=== PATIENT | female | born 1985 ===

== ENCOUNTER 2017-05-23 01:50 | Inpatient (IN) | payer MEDICARE, MEDICAID ==
[2017-05-23 01:50] VITALS: BMI 31.9
--- NOTE | 2017-05-23 02:25 | C.PDOC ---
History Of Present Illness 31 year old female presents to the ED complaining of feeling depressed. States she is sad because her sister and wants to talk to someone. Denies any suicidal or homicidal ideation. Time Seen by Provider: 05/23/17 02:24 Chief Complaint (Nursing): Psychiatric Evaluation History Per: Patient History/Exam Limitations: no limitations Onset/Duration Of Symptoms: Days Current Symptoms Are (Timing): Still Present Suicide/Self Injury Attempted (Context): None Modifying Factor(s): None Severity: Moderate Associated Symptoms: Depression. denies: Suicidal Thoughts Involuntary Hold By: None Recent travel outside of the [place]: No Past Medical History Reviewed: Historical Data, Nursing Documentation, Vital Signs Vital Signs: Last Vital Signs Temp 98.3 F 05/23/17 02:23 Pulse 87 05/23/17 02:23 Resp 18 05/23/17 02:23 BP 126/87 05/23/17 02:23 Pulse Ox 100 05/23/17 02:23 - Medical History PMH: Anxiety, Bipolar Disorder, Depression Denies: Diabetes, Hepatitis, HIV, HTN, Chronic Kidney Disease, Seizures, Sexually Transmitted Disease Surgical History: No Surg Hx - [facility] GROUP PSYCHOTHERAPY (05/03/15) MEDICATION MANAGEMENT (05/03/15) OTHER GROUP THERAPY (08/16/12) PSYCHIAT DRUG THERAP NEC (08/16/12) TETANUS TOXOID ADMINIST (06/07/13) Family History: States: No Known Family Hx - Social History Hx Tobacco Use: No Hx Alcohol Use: No Hx Substance Use: Yes - Immunization History Hx Tetanus Toxoid Vaccination: No Hx Influenza Vaccination: No Hx Pneumococcal Vaccination: No Review Of Systems Psych: Positive for: Depression. Negative for: Suicidal ideation Physical Exam - Physical Exam Appears: Non-toxic, No Acute Distress Skin: Warm, Dry Head: Normacephalic Eye(s): bilateral: Normal Inspection Oral Mucosa: Moist Neck: Trachea Midline, Supple Chest: Symmetrical Cardiovascular: Rhythm Regular Respiratory: No Rales, No Rhonchi, No Wheezing Back: Normal Inspection Extremity: Normal ROM Extremity: Bilateral: Atraumatic, Normal Color And Temperature Neurological/Psych: Oriented x3, Normal Speech Gait: Steady ED Course And Treatment - Laboratory Results Result Diagrams: 05/23/17 03:00 05/23/17 03:00 Progress Note: Ordered blood work, UDS, and UA. Patient will be seen by crisis. Disposition Counseled Patient/Family Regarding: Studies Performed, Diagnosis - Disposition Disposition Time: 02:25 Condition: FAIR Forms: [facility] (Irish) - Clinical Impression Clinical Impression: Depression, PCP (phencyclidine) abuse - Scribe Statement The provider has reviewed the documentation as recorded by the Scribe (Greer Fontana) Provider Attestation: All medical record entries made by the Scribe were at my direction and personally dictated by me. I have reviewed the chart and agree that the record accurately reflects my personal performance of the history, physical exam, medical decision making, and the department course for this patient. I have also personally directed, reviewed, and agree with the discharge instructions and disposition. Physician Patient Turnover Patient Signed Over To: Jaxon Teresa DO Handoff Comments: pending crisis eval
[2017-05-23 03:04] LABS: BASO # 0.1 K/uL (0.0-0.2); BASO % 1.1 % (0.0-2.0); EOS # 0.3 K/uL (0.0-0.7); EOS % 4.3 % (0.0-4.0); HEMOGLOBIN 13.8 g/dL (11.0-16.0); LYMPH % 25.2 % (20.0-40.0); MEAN CELL VOLUME 95.8 fL (81.0-99.0); MEAN CORPUSCULAR HEMOGLOBIN 32.7 pg (27.0-31.0); MEAN CORPUSCULAR HGB CONC 34.2 g/dL (33.0-37.0); MEAN PLATELET VOLUME 7.6 fL (7.2-11.7); MONO # 0.6 K/uL (0.0-0.8); MONO % 7.3 % (0.0-10.0); NEUT % 62.1 % (50.0-75.0); RBC 4.22 Mil/uL (3.80-5.20); RED CELL DISTRIBUTION WIDTH 13.2 % (11.5-14.5)
[2017-05-23 03:11] LABS: SQUAMOUS EPITHIAL 1 /hpf (0-5); URINE BILIRUBIN NEGATIVE (NEGATIVE); URINE BLOOD 3+ (NEGATIVE); URINE CLARITY Hazy (Clear); URINE COLOR Yellow (YELLOW); URINE GLUCOSE (UA) NORMAL (Normal); URINE LEUKOCYTE ESTERASE NEG Leu/uL (Negative); URINE NITRATE NEGATIVE (NEGATIVE); URINE PROTEIN 1+ mg/dL (NEGATIVE)
[2017-05-23 03:15] LABS: ALBUMIN 3.9 g/dL (3.5-5.0); ALT/SGPT 23 U/L (9-52); AST/SGOT 22 U/L (14-36); BLOOD UREA NITROGEN 13 mg/dL (7-17); CALCIUM 9.2 mg/dl (8.6-10.4); GFR AFRICAN-AMERICAN > 60; GFR NON-AFRICAN AMERICAN > 60
[2017-05-23 03:32] LABS: BARBITURATES, UR NEGATIVE (NEGATIVE); BENZODIAZEPINES, UR NEGATIVE (NEGATIVE); OPIATES, UR NEGATIVE (NEGATIVE); PHENCYCLIDINE, UR POSITIVE (NEGATIVE)
[2017-05-23 09:00] VITALS: O2SAT 97
--- NOTE | 2017-05-23 11:08 | PCM.BM ---
<Yanira Velazquez - Last Filed: 05/23/17 11:06> Treatment Plan Problems - Problems identified on initial assessmt Depression Date Initiated: 05/23/17 Time Initiated: 11:06 Assessment reference: NA Status: Active Anxiety Date Initiated: 05/23/17 Time Initiated: 11:07 Assessment reference: NA Status: Active Treatment assets and liabiliti Patient Assests: adapts well, cooperative, ADL independent, physically healthy, negotiates basic needs, cognitively intact Patient Liabilities: live alone (Lives with mother), financial problems, substance abuse (PCP), medical problems (None) - Milieu Protocol Maintain good personal hygiene: daily Encourage regular showers, daily Remind patient to perform daily oral care, daily Assist patient to perform ADL's (Self) , other Assist patient to perform ADL's Conduct patient checks and document Observation sheet: Q15 minutes (for safety) Maintain personal safety: every shift Educate patient to report safety concerns to staff, every shift Monitor environment for contraband/sharps Medication safety: Monitor for expected outcome, potential side effects: every shift, Assess barriers to learning: every shift, Assess readiness for medication education: every shift <Roopa Colunga - Last Filed: 05/24/17 00:35> - Diagnosis (1) Bipolar disorder, curr episode mixed, severe, with psychotic features Status: Acute Interventions: 05/24/17 00:36 * Assess/adjust medications daily and /or as needed * See patient on an individual basis 7x/week to assess level of manic behaviors and stability * Discuss risks, benefits, side effects and alternatives of medications * (2) PCP (phencyclidine) abuse Status: Acute Interventions: 05/24/17 00:36 * Assess 7x/week regarding severity of withdrawal * Educate regarding risks, benefits, side effects and alternatives of medications * Use Motivational Interviewing for abstinence * Use CBT for relapse prevention * Medication management for withdrawal symptoms * Encourage medication assisted treatment * <Michela Miguel - Last Filed: 05/24/17 11:15> Family Contact Family involvement: Family/SO is involved Family contact: Patient declines to allow family contact at present - Goals for Treatment Patient goals for treatment: "People need to listen me." Discharge/Continuing Care - Education Needs Education Needs: Patient Medication, Patient Coping Skills, Patient Community resources - Discharge Discharge Criteria: Tolerates medication w/o severe side effects, Reduction of target symptoms Discharge to:: Home, With Family - Treatment Team Participation Discussed with Family/SO: No Was Patient/Family/SO present at Treatment Team Meeting: Yes
--- NOTE | 2017-05-23 12:35 | PCM.PSYCH ---
Initial Psychiatric Evaluation - Initial Psychiatric Evaluation Type of Admission: Voluntary Legal Status: Capacity Chief Complaint (in patient's own words): I am hearing voices.' History of Present Illness and Precipitating Events: Pt is a 31 year old, AAF, with history of bipolar disorder came to the ED increasingly depressed mood and AH. Pt remained disorganized and internally preoccupied throughout the evaluation. She reports of hearing God's voice, telling her 'to do good stuff.' She also reports of hearing bad voices.' She remained paranoid, bizarre and circumstantial. During the conversation, she suddenly started looking outside and started describing that sun is spreading its light everywhere. She continued to had loose associations. As per the ED note, 'pt presented with rapid, tangential speech. Pt was also rambling with flight of ideas. Pt presented with labile mood, at times crying and at other times she was laughing. Pt reported that she had two family members. who recently , most recently her aunt. Pt reported that the she also has a friend, who treats her poorly.' Pt reports that she was last discharged from in 2016 and she started following up with [facility]. She admits that she doesn't take her medication that is prescribed by Dr Dunn from the [facility], but reports that she needs to be back on her meds. She reports racing of thoughts, auditory hallucinations and visual hallucinations. She also reports poor sleep and poor appetite. She reports of abusing PCP but denies any other substance abuse. PMH: None reported Current Medications: Active Medications Generic Name Dose Route Start Last Admin Trade Name Freq PRN Reason Stop Dose Admin Benztropine Mesylate 2 mg 05/23/17 09:57 Cogentin PO Q6 PRN Extra Pyramidal Symptoms Diphenhydramine HCl 50 mg 05/23/17 09:57 Benadryl PO Q6 PRN Extra Pyramidal Symptoms Haloperidol 5 mg 05/23/17 09:57 Haldol PO Q8 PRN Moderate Agitation Lorazepam 1 mg 05/23/17 09:57 Ativan PO Q6 PRN Anxiety Pneumococcal Polyvalent Vaccine 0.5 ml 05/26/17 10:00 Pneumovax 23 Vaccine IM 05/26/17 10:01 .ONCE ONE Trazodone HCl 50 mg 05/23/17 22:00 Desyrel PO HS [facility] Past Psychiatric History - Past Psychiatric History Previous Treatment History: Inpatient Pertinent Medical Hx (Current Medical&Sleep Prob, Allergies): Allergies Allergy/AdvReac Type Severity Reaction Status Date / Time pineapple Allergy ITCHING Verified 05/23/17 02:29 Unobtainable 05/23/17 Review of Systems - Review of Systems All systems: reviewed and no additional remarkable complaints except - Psychiatric Psychiatric: Anxiety, Auditory Hallucinations, Irritability, Mood Swings, Paranoia, Visual Hallucinations Mental Status Examination - Personal Presentation Personal Presentation: Looks stated age - Affect Affect: Broad - Motor Activity Motor Activity: Psychomotor Agitation - Reliability in Providing Information Reliability in Providing Information: Poor, due to alteration in thoughts, Poor , due to altered mood - Speech Speech: Disorganized - Mood Mood: Anxious - Formal Thought Process Formal Thought Process: Hallucinations, Delusions, Paranoia, Loosening of associations, Flight of ideas, Circumstantial - Hallucinations/Delusions Hallucinations: Visual, Auditory Delusions: Persecution - Obsessions/Compulsions Obsessions: No Compulsions: No - Cognitive Functions Orientation: Person, Place, Situation, Time Sensorium: Alert Attention/Concentration: Easily distracted Abstract Thinking: [place] Estimate of Intelligence: Below average Judgement: Imparied, as evidence by: Poor judgement, Imparied, as evidence by: Lack of insight into illness - Risk Risk: Diminished functioning - Strength & Assets Inventory Strength & Assets Inventory: Family support DSM 5 DX - DSM 5 DSM 5 Diagnosis: Bipolar disorder mixed severe with psychotic features R/O Schizoaffective disorder bipolar type PCP use disorder moderate - Recommended/Plan of Treatment Treatment Recommendations and Plan of Treatment: Bipolar disorder mixed severe with psychotic features R/O Schizoaffective disorder bipolar type -CBT -Psychoeducation -Supportive therapy, group therapy, individual therapy -Haldol 5 mg by mouth twice a day -[place] 300 mg PO TID -Cogenitn 1 mg PO BID -Klonopin 0.5 mg PO BID -Trazodone 50 mg by mouth daily at bedtime -Ativan prn PCP use disorder moderate -Monitor signs and symptoms -Use [place] for abstinence - Smoking Cessation Smoking Cessation Initiated: No
--- NOTE | 2017-05-24 11:13 | PCM.PYCHPN ---
Psychiatric Progress Note - Psychiatric Progress Note Patient seen today, length of contact: 15 min Patient Chief Complaint: I am hearing voices.' Problems Identified/Issues Discussed: Patient seen and evaluated, chart reviewed and discussed with the nurse. Patient remained disorganized and internally preoccupied. Patient remained extremely paranoid, and delusional. She continued to have loose associations. Her speech is still over productive, circumstantial and loose. During her evaluation, she started talking about her health, and suddenly she changed the topic to the [place], and continued to change the topics. she still reports of hearing God's voices. however she denies any suicidal ideation or homicidal ideation. She is taking medication and denies any side effects. She needs more time for stabilization Supportive therapy and psychoeducation were given. Medication Change: Yes (Increase lithium) Medical Record Reviewed: Yes Mental Status Examination - Cognitive Function Orientation: Person, Place, Situation, Time Memory: Intact Attention: Poor Concentration: Poor Association: Loose Fund of Knowledge: Poor - Mood Mood: Anxious - Affect Affect: Broad - Speech Speech: Pressured - Formal Thought Process Formal Thought Process: Hallucinations, Delusions, Paranoia, Loosening of associations, Flight of ideas, Circumstantial - Suicidal Ideation Suicidal Ideation: No - Homicidal Ideation Homicidal Ideation: No Goal/Treatment Plan - Goal/Treatment Plan Need for Continued Stay: Severe depression anxiety, Severe functional impairment Progress Toward Problem(s) and Goals/Treatment Plan: Bipolar disorder mixed severe with psychotic features R/O Schizoaffective disorder bipolar type -CBT -Psychoeducation -Supportive therapy, group therapy, individual therapy -Haldol 5 mg by mouth twice a day -increase [place] 600 mg PO BID -Cogenitn 1 mg PO BID -Klonopin 0.5 mg PO BID -Trazodone 50 mg by mouth daily at bedtime -Ativan prn PCP use disorder moderate -Monitor signs and symptoms -Use [place] for abstinence
--- NOTE | 2017-05-25 13:18 | PCM.PYCHPN ---
Psychiatric Progress Note - Psychiatric Progress Note Patient seen today, length of contact: 15 min Patient Chief Complaint: "I need to go far far away from my family" Problems Identified/Issues Discussed: The pt is seen, chart reviewed, case discussed. She is still disorganized, thought disordered, labile and religiously preoccupied. She claims she must leave by Saturday to not miss a housing opportunity but when asked for details she does not make sense Then she shows a zoroastrian pamphlet and says that the message in one page was about her and her family, literally. She believes that. She put in a 48-hour note later on Medication Change: Yes (Increase haldol) Medical Record Reviewed: Yes Mental Status Examination - Cognitive Function Orientation: Person, Place, Situation, Time Memory: Intact Attention: Poor Concentration: Poor Association: Loose Fund of Knowledge: Poor - Mood Mood: Anxious - Affect Affect: Broad, Constricted - Speech Speech: Pressured - Formal Thought Process Formal Thought Process: Hallucinations, Delusions, Paranoia, Loosening of associations, Flight of ideas, Circumstantial - Suicidal Ideation Suicidal Ideation: No - Homicidal Ideation Homicidal Ideation: No Goal/Treatment Plan - Goal/Treatment Plan Need for Continued Stay: Severe depression anxiety, Discharge may exacerbated symptoms, Severe functional impairment Progress Toward Problem(s) and Goals/Treatment Plan: Increase haldol [place] level in AM TSH in AM Consider [facility] screening if she does not improve
[2017-05-26] MEDS ORDERED: Influenza Vaccine 60 mcg/0.5 mL SYR (4YR UP) IM ONE (10:00)
[2017-05-26] MEDS ORDERED: Pneumococcal 23-Valent Vaccine IM ONE (10:00)
--- NOTE | 2017-05-26 13:26 | PCM.PYCHPN ---
Psychiatric Progress Note - Psychiatric Progress Note Patient seen today, length of contact: 18 min Patient Chief Complaint: "I want to leave by Saturday" Problems Identified/Issues Discussed: The pt is seen, chart reviewed, case discussed. Put in a 48 hr note but rescinded today. She insists on leaving no later than Saturday Still manic but improving. Li level is low but she is compliant and on 1200 mg, will repeat Sat Not suicidal/homicidal Medication Change: No Medical Record Reviewed: Yes Mental Status Examination - Cognitive Function Orientation: Person, Place, Situation, Time Memory: Intact Attention: Poor Concentration: Poor Association: Loose Fund of Knowledge: Poor - Mood Mood: Anxious - Affect Affect: Broad, Constricted - Speech Speech: Pressured - Formal Thought Process Formal Thought Process: Hallucinations, Delusions, Paranoia, Loosening of associations, Circumstantial - Suicidal Ideation Suicidal Ideation: No - Homicidal Ideation Homicidal Ideation: No Goal/Treatment Plan - Goal/Treatment Plan Need for Continued Stay: Severe depression anxiety, Discharge may exacerbated symptoms, Severe functional impairment Progress Toward Problem(s) and Goals/Treatment Plan: Increased haldol [place] level done TSH done Continue meds Support and psychoed AFter care by [facility]
[2017-05-27] MEDS ORDERED: Haloperidol Decanoate 100 mg/ml Inj IM ONE (12:51)
--- NOTE | 2017-05-27 12:51 | PCM.PYCHPN ---
Psychiatric Progress Note - Psychiatric Progress Note Patient seen today, length of contact: 18 min Patient Chief Complaint: I am feeling much better and I cant wait to go home tomorrow and go to the dentist.' Problems Identified/Issues Discussed: Patient seen and evaluated, chart reviewed and discussed with the nurse. Patient remained disorganized and internally preoccupied. Patient remained extremely paranoid, and delusional. She continued to have loose associations. Her speech is still over productive, circumstantial and loose. 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 She denies any suicidal ideation or homicidal ideation. She is taking medication and denies any side effects. Supportive therapy and psychoeducation were given. Medication Change: Yes (haldol decanoate 100 mg I/M) Medical Record Reviewed: Yes Mental Status Examination - Cognitive Function Orientation: Person, Place, Situation, Time Memory: Intact Attention: Poor Concentration: Poor Association: Loose Fund of Knowledge: Poor - Mood Mood: Anxious - Affect Affect: Broad, Constricted - Speech Speech: Pressured - Formal Thought Process Formal Thought Process: Hallucinations, Delusions, Paranoia, Loosening of associations, Circumstantial - Suicidal Ideation Suicidal Ideation: No - Homicidal Ideation Homicidal Ideation: No Goal/Treatment Plan - Goal/Treatment Plan Need for Continued Stay: Severe depression anxiety, Discharge may exacerbated symptoms, Severe functional impairment Progress Toward Problem(s) and Goals/Treatment Plan: Bipolar disorder mixed severe with psychotic features R/O Schizoaffective disorder bipolar type -CBT -Psychoeducation -Supportive therapy, group therapy, individual therapy -Haldol 5 mg by mouth twice a day -increase [place] 600 mg PO BID -Cogenitn 1 mg PO BID -Klonopin 0.5 mg PO BID -Trazodone 50 mg by mouth daily at bedtime -Ativan prn - Haldol [place] 100 mg I/M PCP use disorder moderate -Monitor signs and symptoms -Use [place] for abstinence
[2017-05-28 06:21] VITALS: RESP 19; TEMP 98.1
[2017-05-28 07:57] VITALS: BP 102/67; PULSE 86
--- NOTE | 2017-05-28 10:43 | PCM.PYCHDC ---
Mental Status Examination - Mental Status Examination Orientation: Person, Place, Situation, Time Memory: Intact Mood: Neutral Affect: Constricted Speech: Soft Attention: WNL Concentration: WNL Association: WNL Fund of Knowledge: WNL Formal Thought Process: No Impairment Description of patient's judgement and insight: good, fair Psychotic Thoughts and Behaviors: denies any AVH Suicidal Ideation: No Current Homicidal Ideation?: No Discharge Summary - Discharge Note Reason for Hospitalization: Pt is a 31 year old, AAF, with history of bipolar disorder came to the ED increasingly depressed mood and AH. Pt remained disorganized and internally preoccupied throughout the evaluation. She reports of hearing God's voice, telling her 'to do good stuff.' She also reports of hearing bad voices.' She remained paranoid, bizarre and circumstantial. During the conversation, she suddenly started looking outside and started describing that sun is spreading its light everywhere. She continued to had loose associations. As per the ED note, 'pt presented with rapid, tangential speech. Pt was also rambling with flight of ideas. Pt presented with labile mood, at times crying and at other times she was laughing. Pt reported that she had two family members. who recently , most recently her aunt. Pt reported that the she also has a friend, who treats her poorly.' Pt reports that she was last discharged from in 2016 and she started following up with [facility]. She admits that she doesn't take her medication that is prescribed by Dr Dunn from the [facility], but reports that she needs to be back on her meds. She reports racing of thoughts, auditory hallucinations and visual hallucinations. She also reports poor sleep and poor appetite. She reports of abusing PCP but denies any other substance abuse. Consultations:: List each consultation separately and include: 1. Reason for request. 2. Findings. 3. Follow-up Summary of Hospital Course include:: 1. Description of specific treatment plan utilized for patients during their course of treatmen. 2. Summarize the time- course for resolution of acute symptoms and/or regressed behaviors. 3. Describe issues identified and worked on during hospitalization. 4. Describe medication utilized. 5. Describe medical problems identified and treated. 6. Reassessment of suicide risk Summary of Hospital Course: During the course of her stay, patient (pt) started progressively improving and no longer remained irritable, manic, paranoid and suicidal. Her mood and anxiety were improved and she started attending groups and meetings and started socializing. Patient denied any feelings of hopelessness, helplessness, and worthlessness, denied any problem with the sleep or appetite, denied suicidal ideation or homicidal ideation. Pt denied any auditory or visual hallucinations. Some changes were made in her current medications and patient was discharged on following medications. She tolerated these medications very well and denied any side effects. She was given haldol decanoate 100 mg I/M and she was discharged to the [facility]. - Diagnosis (1) Bipolar disorder, curr episode mixed, severe, with psychotic features Status: Acute (2) PCP (phencyclidine) abuse Status: Acute - Final Diagnosis (DSM 5) Condition upon Discharge: FAIR DSM 5: Bipolar disorder mixed severe with psychotic features PCP use disorder moderate Disposition: HOME/ ROUTINE Follow-up Treatment Plan: Education: Pt was educated and counseled about the risks and benefits of taking and not taking medications. Pt was educated and counseled about the risks of drinking and abusing drugs. Pt was educated and counseled to go to the ER or call 911 if pt develop suicidal ideation or homicidal ideation, worsening of symptoms or severe side effects of the meds. Prescriptions/Medication Reconciliation: Benztropine [Cogentin] 1 mg PO BID #60 tab Haloperidol [Haldol] 10 mg PO BID #60 tab Hydroxyzine HCl 25 mg PO BID 30 Days #60 tablet [place] Carbonate [[place] Carbonate 300MG] 600 mg PO DAILY #30 cap [place] Carbonate [[place] Carbonate 300MG] 900 mg PO HS #30 cap traZODone [Desyrel] 100 mg PO HS #30 tab - Smoking Cessation Smoking Cessation Medication prescribed: No - Antipsychotic Medications Pt discharged on 2 or more routine antipsychotic medications: No
== END 2017-05-28 12:47 | disposition home or self-care (01) | DRG 885 ==
LOC: C.ER 01:50 → C.5E 08:53
PROVIDERS: ADMIT Psychiatry & Neurology Psychiatry; ATTEND Psychiatry & Neurology Psychiatry
PROC: GZ56ZZZ Individual Psychotherapy, Supportive (ICD-10-PCS; principal; 2017-05-23)
DX: F31.64 Bipolar disorder, current episode mixed, severe, with psychotic features (principal); F16.10 Hallucinogen abuse, uncomplicated

== ENCOUNTER → 2017-06-04 19:35 | Emergency (ER) | payer MEDICARE, OTHER ==
[2017-06-04 19:35] VITALS: BMI 31.9
== END | disposition left against medical advice (07) ==
LOC: C.ER 19:35
DX: Z02.89 Encounter for other administrative examinations (principal)

== ENCOUNTER 2018-08-10 10:13 | Emergency (ER) | payer MEDICARE, OTHER ==
[2018-08-10 10:13] VITALS: BMI 31.3
[2018-08-10 10:24] VITALS: BP 117/80; PULSE 99; RESP 18; TEMP 98; O2SAT 97
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
== END 2018-08-10 11:47 | disposition home or self-care (01) ==
LOC: C.ER 10:13
DX: F43.20 Adjustment disorder, unspecified (principal)